=== PATIENT | female | born 1935 | race Caucasian/White ===

== ENCOUNTER → 2019-10-16 | Outpatient (CLI) | payer MEDICARE ==
[~2019-10-16] MED LIST: AMLO10TA8 PO; AMLO5TAB4 PO; ASPI-496 PO; ATOR20TA37 PO; CLON0.1T22 PO; ENAL20TA68 PO; FURO-92 PO; FURO-93 PO; HYDR-3341 PO; LOSA25TA2 PO; LOSA25TA25 PO; METO25TA35 PO; METO50TA4 PO; METO50TA82 PO; NITR2.5C8 PO; OMEP40CA3 PO; POTA25TA4 PO; SERT100T PO; SULF-169 PO; SULF1TAB24 PO
== END | disposition home or self-care (01) ==
LOC: CFH 16:15
PROVIDERS: ATTEND Surgery Vascular Surgery
DX: M79.662 Pain in left lower leg (principal)

== ENCOUNTER 2019-10-28 11:33 | Inpatient (IN) | payer MEDICARE ==
[~2019-10-28] VITALS: Ht 154.9 cm; Wt 85.5 kg
[~2019-10-28 11:33] MED LIST changes: +HYDR-3237 PO; +IBUP-1222 PO; +LIDO700A20 TD
--- NOTE | 2019-10-28 12:00 | NUR ---
THIS IS AN 83 YO FEMALE PT BIB [facility] C/O LEFT LEG PAIN X "WEEKS". PT HAS BEEN SEEN HERE FOR SAME A FEW DAYS AGO AND REPORTS SHE WENT TO "THE OTHER HOSPITAL" A COUPLE TIMES FOR SAME WELL. PT RECEIVED 100 MCG FENTANYL INTRANASALLY BY EMS [employer]. PT TEARFUL UPON ARRIVAL BUT BECAME DROWSY WHILE ANSWERING QUESTIONS STATING "THAT MEDICATION IS FINALLY KICKING IN, IT WAS A 10 AND NOW IT'S A 7". PT REST[facility] NAD NOTED. SKIN PWD, SMALL RED AREA NOTED ON LEG WITH BLACK MARKER AROUND IT. IT DOES NOT APPEAR REDNESS HAS GONE OUTSIDE MARKING. RESP EVEN AND UNLABORED. PT ON CONT BP AND O2 MONITORS. CALL LIGHT WITHIN REACH. WILL CONT TO MONITOR PT.
[2019-10-28 12:23] LABS: BASOPHILS # (AUTO) 0.05 x10^3/uL (0-0.1); BASOPHILS % (AUTO) 1 % (0-1); EOSINOPHILS # (AUTO) 0.13 x10^3/uL (0-0.4); EOSINOPHILS % (AUTO) 2 % (1-7); LYMPHOCYTES # (AUTO) 1.38 x10^3/uL (1-3.4); LYMPHOCYTES % (AUTO) 20 % (22-44); MD NO; MEAN CORPUSCULAR HEMOGLOBIN 26.5 pg (27.0-34.8); MEAN CORPUSCULAR HGB CONC 32.4 g/dL (32.4-35.8); MEAN CORPUSCULAR VOLUME 81.8 fL (80-100); MEAN PLATELET VOLUME 7.8 fL (7.4-10.4); MONOCYTES # (AUTO) 0.54 x10^3/uL (0.2-0.8); MONOCYTES % (AUTO) 8 % (2-9); NEUTROPHILS # (AUTO) 4.97 x10^3/uL (1.8-6.8); NEUTROPHILS % (AUTO) 70 % (42-75); PLATELET COUNT 437 x10^3/uL (130-400); RED BLOOD COUNT 4.85 x10^6/uL (3.82-5.3); RED CELL DISTRIBUTION WIDTH 17.8 % (9.6-15.2)
[2019-10-28 12:31] LABS: ALBUMIN 2.4 g/dL (3.4-5.0); ANION GAP 9 mmol/L (5-15); CALCIUM 9.2 mg/dL (8.5-10.1); CHLORIDE 103 mmol/L (98-107); CREATININE 1.05 mg/dL (0.55-1.02)
[2019-10-28] MEDS ORDERED: ONDANSETRON ODT 4 MG ONE (13:16)
--- NOTE | 2019-10-28 13:21 | NUR ---
PT CURRENTLY RESTING ON GURNEY. NAD NOTED. SKIN PWD. RESP EVEN AND UNLABORED. PT REPORTS PAIN IS TOLERABLE AND DECREASED AT THIS TIME. PT C/O NAUSESA. DISCUSSED WITH WADE MANCERA AND PT MEDICATED ORDERED. PT AO X 4. SKIN WARM AND DRY. RESP EVEN AND UNLABORED. PT ON CONT BP AND O2 MONITORS. CALL LIGHT WITHIN REACH. WILL CONT TO MONITOR PT.
[2019-10-28] MEDS ORDERED: ONDANSETRON ODT 4 MG PO ONE (13:30)
[2019-10-28] MEDS ORDERED: ENOXAPARIN 80 MG/0.8 ML SQ SCH (13:30)
[2019-10-28] MEDS ORDERED: ENOXAPARIN 80 MG/0.8 ML ONE (14:19)
--- NOTE | 2019-10-28 15:30 | NUR ---
PT CURRENTLY RESTING ON GURNEY. NAD NOTED. PT AWARE THAT WE ARE WAITING FOR ADMISSION. PT DENIES ANY NEEDS AT THIS TIME. CALL LIGHT WITHIN REACH. WILL CONT TO MONITOR PT.
--- NOTE | 2019-10-28 16:11 | NUR ---
lunch rn:PT CURRENTLY RESTING ON [employer]. NAD NOTED. SKIN PWD. RESP EVEN AND UNLABORED. PT REPORTS PAIN IS TOLERABLE AND DECREASED AT THIS TIME
[2019-10-28] MEDS ORDERED: hydrALAzine 20 MG/ML, 1ML IVPush PRN (16:30)
[2019-10-28] MEDS: LACTATED RINGERS 1,000 ML IV SCH (16:30)
[2019-10-28] MEDS ORDERED: ACETAMINOPHEN 325 MG TABLET PO PRN (16:30)
[2019-10-28] MEDS ORDERED: DOCUSATE 100 MG CAPSULE PO PRN (16:30)
[2019-10-28] MEDS ORDERED: LIDODERM 5% PATCH TD PRN (16:30)
--- NOTE | 2019-10-28 16:44 | NUR ---
Lunch RN: Pt in CT unable to start LR, Will begin when pt returns.
[2019-10-28] MEDS ORDERED: OMNIPAQUE 350 MG/ML, 100ML BOTTLE ONE (16:55)
--- NOTE | 2019-10-28 17:30 | NUR ---
REPORT TO YARELI WIGGINS ON MED/SURG.
--- NOTE | 2019-10-28 17:59 | NUR ---
PT PROVIDED WITH WARM BLANKET. PT AO X 4. SKIN PWD. RESP EVEN AND UNLABORED. NO ACUTE DISTRESS NOTED AT THIS TIME. PT CURRENTLY DENIES PAIN. PT AWARE SHE IS WAITING FOR ADMISSION. CALL LIGHT WITHIN REACH.
[2019-10-28 19:29] VITALS: BP 156/98
[2019-10-28] MEDS: LIDODERM 5% PATCH TD SCH (21:24)
[2019-10-28] MEDS: SERTRALINE 100MG TABLET PO SCH (21:24)
[2019-10-28] MEDS: ATORVASTATIN 20 MG TABLET PO SCH (21:24)
[2019-10-28] MEDS: HYDROcodone/APAP 5/325 TABLET PO PRN (21:43)
[2019-10-29 01:25] VITALS: BP 177/68
[2019-10-29] MEDS: ENOXAPARIN 80 MG/0.8 ML SQ SCH ×2 (02:25→14:42)
[2019-10-29] MEDS: HYDROcodone/APAP 5/325 TABLET PO PRN ×4 (03:52→20:33)
[2019-10-29 03:54] VITALS: BP 106/65
[2019-10-29] MEDS: MORPHINE SULFATE 4 MG/ML, 1ML IVPush PRN ×2 (04:56→09:41)
[2019-10-29] MEDS: LACTATED RINGERS 1,000 ML IV SCH ×2 (04:56→17:43)
[2019-10-29] MEDS: OMEPRAZOLE 20 MG CAPSULE.DR PO SCH (05:33)
[2019-10-29] MEDS ORDERED: ONDANSETRON ODT 4 MG PO ONE (06:00)
[2019-10-29 07:36] VITALS: BP 196/103
[2019-10-29] MEDS: LIDODERM REMOVE PATCH NOTE XX SCH (08:00)
[2019-10-29] MEDS: AMLODIPINE 10 MG TAB PO SCH (08:34)
[2019-10-29] MEDS: ASPIRIN 81 MG TABLET EC PO SCH (08:34)
[2019-10-29 08:35] VITALS: BP 194/72
[2019-10-29] MEDS: METOPROLOL TARTRATE 25 MG TAB PO SCH (08:35)
[2019-10-29] MEDS: LABETALOL 5MG/ML, 20ML IVPush PRN (08:40)
[2019-10-29 08:52] LABS: BASOPHILS # (AUTO) 0.03 x10^3/uL (0-0.1); BASOPHILS % (AUTO) 0 % (0-1); EOSINOPHILS # (AUTO) 0.08 x10^3/uL (0-0.4); EOSINOPHILS % (AUTO) 1 % (1-7); LYMPHOCYTES # (AUTO) 1.63 x10^3/uL (1-3.4); LYMPHOCYTES % (AUTO) 18 % (22-44); MD NO; MEAN CORPUSCULAR HEMOGLOBIN 26.4 pg (27.0-34.8); MEAN CORPUSCULAR HGB CONC 31.9 g/dL (32.4-35.8); MEAN CORPUSCULAR VOLUME 82.7 fL (80-100); MEAN PLATELET VOLUME 7.6 fL (7.4-10.4); MONOCYTES % (AUTO) 7 % (2-9); NEUTROPHILS # (AUTO) 6.92 x10^3/uL (1.8-6.8); NEUTROPHILS % (AUTO) 75 % (42-75); PLATELET COUNT 446 x10^3/uL (130-400); RED CELL DISTRIBUTION WIDTH 17.7 % (9.6-15.2)
[2019-10-29 08:57] LABS: HCT (SEDRATE) 40.5 % (34.6-47.8)
[2019-10-29 08:59] LABS: ANION GAP 11 mmol/L (5-15); CALCIUM 8.8 mg/dL (8.5-10.1); CHLORIDE 103 mmol/L (98-107); CREATININE 0.77 mg/dL (0.55-1.02)
[2019-10-29] MEDS ORDERED: MAGNESIUM SULFATE PMX 4GM/100M 100 ML IV ONE (10:00)
[2019-10-29] MEDS: POTASSIUM CHLORIDE 20 MEQ TAB.ER.PRT PO SCH ×2 (13:14→17:42)
[2019-10-29 13:31] VITALS: BP 151/59
[2019-10-29 18:42] VITALS: BP 117/66
[2019-10-29] MEDS: SERTRALINE 100MG TABLET PO SCH (20:33)
[2019-10-29] MEDS: LIDODERM 5% PATCH TD SCH (20:33)
[2019-10-29] MEDS: ATORVASTATIN 20 MG TABLET PO SCH (20:33)
[2019-10-30] MEDS: HYDROcodone/APAP 5/325 TABLET PO PRN (00:30)
[2019-10-30 01:13] VITALS: BP 148/56
[2019-10-30] MEDS: ENOXAPARIN 80 MG/0.8 ML SQ SCH ×2 (02:30→14:03)
[2019-10-30] MEDS: OMEPRAZOLE 20 MG CAPSULE.DR PO SCH (05:31)
[2019-10-30 07:58] LABS: ANION GAP 10 mmol/L (5-15); CALCIUM 8.7 mg/dL (8.5-10.1); CHLORIDE 104 mmol/L (98-107); CREATININE 0.83 mg/dL (0.55-1.02)
[2019-10-30] MEDS: LIDODERM REMOVE PATCH NOTE XX SCH (08:00)
[2019-10-30] MEDS: METOPROLOL TARTRATE 25 MG TAB PO SCH (08:22)
[2019-10-30] MEDS: ASPIRIN 81 MG TABLET EC PO SCH (08:22)
[2019-10-30] MEDS: AMLODIPINE 10 MG TAB PO SCH (08:23)
[2019-10-30] MEDS: GABAPENTIN 100 MG CAPSULE PO PRN ×3 (08:23→23:23)
[2019-10-30] MEDS: POTASSIUM CHLORIDE 20 MEQ TAB.ER.PRT PO SCH ×2 (08:23→16:56)
[2019-10-30] MEDS: LACTATED RINGERS 1,000 ML IV SCH ×2 (08:24→23:24)
[2019-10-30 08:41] VITALS: BP 138/101
[2019-10-30 15:59] VITALS: BP 122/74
[2019-10-30] MEDS: INSULIN LISPRO 100 UNITS/ML, PEN SQ-INSULIN SCH ×2 (16:00→21:38)
[2019-10-30 18:51] LABS: MICROSCOPIC AUTO
[2019-10-30 19:58] VITALS: BP 186/91
[2019-10-30] MEDS: LIDODERM 5% PATCH TD SCH (20:00)
[2019-10-30 21:26] LABS: OCCULT BLOOD NEGATIVE (NEGATIVE)
[2019-10-30] MEDS: LABETALOL 5MG/ML, 20ML IVPush PRN (21:26)
[2019-10-30] MEDS: SERTRALINE 100MG TABLET PO SCH (21:26)
[2019-10-30] MEDS: ATORVASTATIN 20 MG TABLET PO SCH (21:26)
[2019-10-31] MEDS: HYDROcodone/APAP 5/325 TABLET PO PRN (00:30)
[2019-10-31 01:59] VITALS: BP 174/72
[2019-10-31] MEDS: ENOXAPARIN 80 MG/0.8 ML SQ SCH (02:51)
[2019-10-31 05:56] LABS: ALBUMIN 2.2 g/dL (3.4-5.0); ANION GAP 8 mmol/L (5-15); CALCIUM 9.2 mg/dL (8.5-10.1); CHLORIDE 105 mmol/L (98-107)
[2019-10-31 06:12] LABS: ALANINE AMINOTRANSFERASE 26 U/L (12-78); ALKALINE PHOSPHATASE 132 U/L (45-117); BILIRUBIN,TOTAL 0.3 mg/dL (0.2-1.0); CREATININE 0.76 mg/dL (0.55-1.02); TOTAL PROTEIN 6.9 g/dL (6.4-8.2)
[2019-10-31 06:18] LABS: BASOPHILS # (AUTO) 0.03 x10^3/uL (0-0.1); BASOPHILS % (AUTO) 0 % (0-1); EOSINOPHILS # (AUTO) 0.09 x10^3/uL (0-0.4); EOSINOPHILS % (AUTO) 1 % (1-7); LYMPHOCYTES # (AUTO) 1.22 x10^3/uL (1-3.4); LYMPHOCYTES % (AUTO) 16 % (22-44); MD NO; MEAN CORPUSCULAR HEMOGLOBIN 26.4 pg (27.0-34.8); MEAN CORPUSCULAR HGB CONC 31.6 g/dL (32.4-35.8); MEAN CORPUSCULAR VOLUME 83.3 fL (80-100); MEAN PLATELET VOLUME 7.8 fL (7.4-10.4); MONOCYTES # (AUTO) 0.48 x10^3/uL (0.2-0.8); MONOCYTES % (AUTO) 6 % (2-9); NEUTROPHILS # (AUTO) 5.79 x10^3/uL (1.8-6.8); NEUTROPHILS % (AUTO) 76 % (42-75); PLATELET COUNT 474 x10^3/uL (130-400); RED BLOOD COUNT 4.57 x10^6/uL (3.82-5.3); RED CELL DISTRIBUTION WIDTH 18.3 % (9.6-15.2)
[2019-10-31] MEDS: OMEPRAZOLE 20 MG CAPSULE.DR PO SCH (06:41)
[2019-10-31] MEDS: INSULIN LISPRO 100 UNITS/ML, PEN SQ-INSULIN SCH ×3 (07:00→16:00)
[2019-10-31] MEDS: LIDODERM REMOVE PATCH NOTE XX SCH (07:08)
[2019-10-31] MEDS: GABAPENTIN 100 MG CAPSULE PO PRN (07:13)
[2019-10-31 07:25] VITALS: BP 126/71
[2019-10-31] MEDS: ASPIRIN 81 MG TABLET EC PO SCH (08:40)
[2019-10-31] MEDS: POTASSIUM CHLORIDE 20 MEQ TAB.ER.PRT PO SCH ×2 (08:40→16:56)
[2019-10-31] MEDS: AMLODIPINE 10 MG TAB PO SCH (08:40)
[2019-10-31] MEDS: METOPROLOL TARTRATE 25 MG TAB PO SCH (08:41)
[2019-10-31] MEDS: LIDODERM 5% PATCH TD SCH (10:37)
[2019-10-31] MEDS ORDERED: APIXABAN 5 MG TABLET PO SCH (12:30)
[2019-10-31] MEDS ORDERED: PRED20TA PO (13:24)
[2019-10-31 14:27] VITALS: BP 139/58
[2019-10-31] MEDS ORDERED: APIX5TAB PO ×3 (15:40→15:41)
[2019-11-07] MEDS ORDERED: APIXABAN 5 MG TABLET PO SCH (09:00)
== END 2019-10-31 18:25 | disposition home or self-care (01) | DRG 299 ==
LOC: ED 13:09 → EDIP 14:42 → 3N 18:44
PROVIDERS: ADMIT Internal Medicine; ATTEND Internal Medicine
DX: I82.442 Acute embolism and thrombosis of left tibial vein (principal); N17.0 Acute kidney failure with tubular necrosis; J96.01 Acute respiratory failure with hypoxia; I82.432 Acute embolism and thrombosis of left popliteal vein; E87.6 Hypokalemia; E83.42 Hypomagnesemia; F32.9 Major depressive disorder, single episode, unspecified; G62.9 Polyneuropathy, unspecified; M79.3 Panniculitis, unspecified; I11.0 Hypertensive heart disease with heart failure; I25.10 Atherosclerotic heart disease of native coronary artery without angina pectoris; I50.9 Heart failure, unspecified; E86.0 Dehydration; Z95.1 Presence of aortocoronary bypass graft; Z86.73 Personal history of transient ischemic attack (TIA), and cerebral infarction without residual deficits; Z86.718 Personal history of other venous thrombosis and embolism; Z79.899 Other long term (current) drug therapy; Z79.01 Long term (current) use of anticoagulants; Z88.8 Allergy status to other drugs, medicaments and biological substances; Z88.0 Allergy status to penicillin
CPT/HCPCS: 36415; 71275; 80048; 80053; 81001; 82040; 82272; 82595; 82962; 83516; 83735; 85025; 85651; 86038; 86140; 86147; 86160; 86162; 86256; 86430; 86704; 86705; 86706; 86707; 86803; 87077; 87086; 87186; 87340; 87350; 87806; 93005; 93308; 93321; 93325; 96372; 99285; G0378; J1650; Q0162; Q9967; G0475; J1815; J2270; J3475; J7120; J7512

== ENCOUNTER 2019-12-14 07:33 | Inpatient (IN) | payer MEDICARE ==
[~2019-12-14] VITALS: Ht 154.9 cm; Wt 75.4 kg
[~2019-12-14 07:33] MED LIST changes: +ACET-2065 PO; +APIX5TAB PO; +BACITRACIN 50,000 UNIT ONE; +CLIN150C14 PO; +DEXAMETHASONE 4 MG/ML, 1ML ONE; +FENTANYL PF 100 MCG/2ML ONE; +GABA600T7 PO; +HEPARIN 1,000 UNITS/ML, 30ML ONE; +LIDO5CRE26 TL; +MIDAZOLAM 1 MG/ML, 2ML ONE; +ONDANSETRON 2MG/ML, 2ML ONE; +POTA20TA89 PO; +PRED20TA PO; +PROPOFOL 10 MG/ML, 20ML ONE; +PROTAMINE SULFATE 10 MG/ML, 5ML ONE; +ROCURONIUM 10MG/ML,5ML ONE
[2019-12-14] MEDS ORDERED: CHLORHEXIDINE 15 ML UDC MM STA (08:02)
[2019-12-14] MEDS ORDERED: LACTATED RINGERS 1,000 ML IV ONE (08:05)
[2019-12-14] MEDS ORDERED: LIDOCAINE-MPF 1%, 2ML INFIL ONE (08:05)
[2019-12-14] MEDS ORDERED: ACETAMINOPHEN 500 MG TABLET PO ONE (10:03)
[2019-12-14] MEDS ORDERED: OXYcodone IR 5MG TABLET PO ONE (10:03)
[2019-12-14] MEDS ORDERED: CEFAZOLIN 1,000 MG ONE (12:06)
[2019-12-14] MEDS ORDERED: GLYCOPYRROLATE 0.2MG/1ML, 5ML ONE (12:06)
[2019-12-14] MEDS ORDERED: PHENYLEPHRINE 10 MG/ML ONE (12:06)
[2019-12-14] MEDS ORDERED: NEOSTIGMINE 1 MG/ML, 10ML ONE (12:06)
[2019-12-14] MEDS ORDERED: EPHEDRINE 50 MG/ML, 1ML ONE (12:19)
[2019-12-14] MEDS ORDERED: FENTANYL PF 100 MCG/2ML ONE ×2 (14:31→14:51)
[2019-12-14] MEDS: FENTANYL PF 100 MCG/2ML IV PRN ×5 (14:32→15:10)
[2019-12-14] MEDS ORDERED: OXYcodone 5 MG/5 ML ORAL.SOL UDC ONE (14:59)
[2019-12-14] MEDS ORDERED: OXYcodone 5 MG/5 ML ORAL.SOL UDC PO PRN (15:00)
[2019-12-14] MEDS ORDERED: hydrALAzine 20 MG/ML, 1ML IV PRN (15:00)
[2019-12-14] MEDS ORDERED: ACETAMINOPHEN 325 MG TABLET PO PRN ×3 (15:00→17:30)
[2019-12-14] MEDS ORDERED: LABETALOL 5MG/ML, 20ML IV PRN (15:00)
[2019-12-14] MEDS ORDERED: ONDANSETRON 2MG/ML, 2ML IVPush PRN ×2 (15:00→17:30)
[2019-12-14] MEDS ORDERED: HYDROmorphone 1 MG/ML, 1ML INJ ONE (15:24)
[2019-12-14] MEDS: HYDROmorphone 1 MG/ML, 1ML INJ IVPush PRN ×2 (15:25→15:36)
[2019-12-14 16:45] VITALS: BP 102/62
[2019-12-14] MEDS ORDERED: ONDANSETRON 2MG/ML, 2ML IV PRN (17:30)
[2019-12-14] MEDS ORDERED: MEPERIDINE/PF 50 MG/ML IV PRN (17:30)
[2019-12-14] MEDS ORDERED: hydrALAzine 20 MG/ML, 1ML IVPush PRN (17:30)
[2019-12-14] MEDS ORDERED: HEPARIN 5,000 UNITS/ML, 1ML SQ SCH (17:30)
[2019-12-14] MEDS ORDERED: BISACODYL 10 MG SUPP PR PRN (17:30)
[2019-12-14] MEDS ORDERED: ZOLPIDEM 5MG TABLET PO PRN (17:30)
[2019-12-14] MEDS ORDERED: HYDROcodone/APAP 5/325 TABLET PO PRN (17:30)
[2019-12-14] MEDS ORDERED: LIDODERM 5% PATCH TD PRN (17:30)
[2019-12-14 18:12] LABS: BASOPHILS # (AUTO) 0.04 x10^3/uL (0-0.1); BASOPHILS % (AUTO) 0 % (0-1); EOSINOPHILS # (AUTO) 0.11 x10^3/uL (0-0.4); EOSINOPHILS % (AUTO) 1 % (1-7); LYMPHOCYTES # (AUTO) 0.75 x10^3/uL (1-3.4); LYMPHOCYTES % (AUTO) 5 % (22-44); MD NO; MEAN CORPUSCULAR HEMOGLOBIN 27.1 pg (27.0-34.8); MEAN CORPUSCULAR HGB CONC 32.3 g/dL (32.4-35.8); MEAN PLATELET VOLUME 7.3 fL (7.4-10.4); MONOCYTES # (AUTO) 0.13 x10^3/uL (0.2-0.8); MONOCYTES % (AUTO) 1 % (2-9); NEUTROPHILS # (AUTO) 13.43 x10^3/uL (1.8-6.8); NEUTROPHILS % (AUTO) 93 % (42-75); PLATELET COUNT 515 x10^3/uL (130-400); RED BLOOD COUNT 4.16 x10^6/uL (3.82-5.3); RED CELL DISTRIBUTION WIDTH 20.8 % (9.6-15.2)
[2019-12-14 18:13] LABS: HCT (SEDRATE) 35.2 % (34.6-47.8)
[2019-12-14] MEDS: METRONIDAZOLE PMX 500MG/100ML 100 ML IVPB SCH (18:25)
[2019-12-14 18:32] LABS: FREE T4 (FREE THYROXINE) 1.44 ng/dL (0.76-1.46)
[2019-12-14] MEDS: HYDROcodone/APAP 5/325 TABLET PO PRN ×2 (19:31→19:59)
[2019-12-14] MEDS: POTASSIUM CHLORIDE 20 MEQ in D5%-0.45% NACL 1,000 ML IV SCH (19:32)
[2019-12-14] MEDS: CEFTRIAXONE PMX 1GM/50ML 50 ML IV SCH (19:59)
[2019-12-14] MEDS: METOPROLOL TARTRATE 25 MG TAB PO SCH (19:59)
[2019-12-14] MEDS: SODIUM CHLORIDE FLUSH 10ML SYR IVF SCH (20:00)
[2019-12-14] MEDS: POTASSIUM CHLORIDE 20 MEQ TAB.ER.PRT PO SCH (20:00)
[2019-12-14] MEDS: GABAPENTIN 300 MG CAPSULE PO SCH (20:00)
[2019-12-14] MEDS: SERTRALINE 100MG TABLET PO SCH (20:00)
[2019-12-14 20:17] VITALS: BP 134/70
[2019-12-14] MEDS ORDERED: METOPROLOL TARTRATE 25 MG TAB PO SCH (21:00)
[2019-12-14] MEDS ORDERED: TEMPLATE NON-FORMULARY MED. (Gabapentin** 300 MG) PO SCH (21:00)
[2019-12-14] MEDS ORDERED: OMEPRAZOLE 20 MG PO SCH (21:00)
[2019-12-14] MEDS ORDERED: SERTRALINE 100MG TABLET PO SCH (21:00)
[2019-12-14] MEDS ORDERED: TEMPLATE NON-FORMULARY MED. (Potassium Chloride** 20 MEQ) PO SCH (21:00)
[2019-12-15] VITALS (8 sets, daily range): BP systolic 92–114; BP diastolic 41–66
[2019-12-15] MEDS: HYDROcodone/APAP 5/325 TABLET PO PRN ×5 (00:23→19:10)
[2019-12-15] MEDS: METRONIDAZOLE PMX 500MG/100ML 100 ML IVPB SCH ×3 (01:58→17:56)
[2019-12-15] MEDS: ASPIRIN 81 MG TABLET EC PO SCH (05:03)
[2019-12-15] MEDS: DOCUSATE 100 MG CAPSULE PO PRN (05:03)
[2019-12-15 05:49] LABS: BASOPHILS # (AUTO) 0.01 x10^3/uL (0-0.1); BASOPHILS % (AUTO) 0 % (0-1); EOSINOPHILS % (AUTO) 0 % (1-7); LYMPHOCYTES # (AUTO) 1.17 x10^3/uL (1-3.4); LYMPHOCYTES % (AUTO) 8 % (22-44); MD NO; MEAN CORPUSCULAR HEMOGLOBIN 26.4 pg (27.0-34.8); MEAN CORPUSCULAR HGB CONC 31.2 g/dL (32.4-35.8); MEAN PLATELET VOLUME 6.9 fL (7.4-10.4); MONOCYTES # (AUTO) 0.96 x10^3/uL (0.2-0.8); MONOCYTES % (AUTO) 7 % (2-9); NEUTROPHILS # (AUTO) 12.49 x10^3/uL (1.8-6.8); NEUTROPHILS % (AUTO) 85 % (42-75); PLATELET COUNT 436 x10^3/uL (130-400); RED CELL DISTRIBUTION WIDTH 20.9 % (9.6-15.2)
[2019-12-15 05:50] LABS: HCT (SEDRATE) 29.6 % (34.6-47.8)
[2019-12-15 06:02] LABS: ALANINE AMINOTRANSFERASE 10 U/L (12-78); ALBUMIN 2.1 g/dL (3.4-5.0); ANION GAP 4 mmol/L (5-15); CHLORIDE 106 mmol/L (98-107); CHOLESTEROL, TOTAL 100 mg/dL (140-239); CREATININE 0.89 mg/dL (0.55-1.02)
[2019-12-15 06:10] LABS: ALKALINE PHOSPHATASE 58 U/L (45-117); BILIRUBIN,TOTAL 0.2 mg/dL (0.2-1.0); CHOL/HDL RATIO 2.7; HDL CHOL % 37 % (28-40); HDL CHOLESTEROL (DIRECT) 37 mg/dL (40-60); LDL CHOLESTEROL,CALCULATED 45 mg/dL (54-169); LDL/HDL RATIO 1.2 (0.5-3.0); TOTAL PROTEIN 6.2 g/dL (6.4-8.2); TRIGLYCERIDES 88 mg/dL (50-200); VLDL CHOLESTEROL 18 mg/dL (0-25)
[2019-12-15] MEDS ORDERED: KETOROLAC 30 MG/1 ML ONE (06:32)
[2019-12-15] MEDS: KETOROLAC 30 MG/1 ML IVPush PRN (06:36)
[2019-12-15] MEDS ORDERED: PANTOPRAZOLE 40MG TABLET PO SCH (07:30)
[2019-12-15] MEDS: OMEPRAZOLE 20 MG CAPSULE.DR PO SCH ×2 (08:18→15:50)
[2019-12-15] MEDS: ENOXAPARIN 30 MG/0.3 ML SQ SCH ×2 (08:18→20:04)
[2019-12-15] MEDS: GABAPENTIN 300 MG CAPSULE PO SCH ×3 (08:18→20:04)
[2019-12-15] MEDS: POTASSIUM CHLORIDE 20 MEQ in D5%-0.45% NACL 1,000 ML IV SCH (08:59)
[2019-12-15] MEDS ORDERED: AMLODIPINE 10 MG TAB PO SCH (09:00)
[2019-12-15] MEDS ORDERED: FUROSEMIDE 40 MG TABLET PO SCH (09:00)
[2019-12-15] MEDS: SODIUM CHLORIDE FLUSH 10ML SYR IVF SCH ×2 (09:01→20:06)
[2019-12-15] MEDS: AMLODIPINE 10 MG TAB PO SCH (09:34)
[2019-12-15] MEDS: FUROSEMIDE 40 MG TABLET PO SCH (09:34)
[2019-12-15] MEDS: CEFTRIAXONE PMX 1GM/50ML 50 ML IV SCH (20:04)
[2019-12-15] MEDS: SERTRALINE 100MG TABLET PO SCH (20:05)
[2019-12-15] MEDS: METOPROLOL TARTRATE 25 MG TAB PO SCH (20:05)
[2019-12-15] MEDS: POTASSIUM CHLORIDE 20 MEQ TAB.ER.PRT PO SCH (20:05)
[2019-12-15] MEDS: POLYETHYLENE GLYCOL 17 GM PACKET PO PRN (20:05)
[2019-12-16 01:29] VITALS: BP 114/76
[2019-12-16] MEDS: POTASSIUM CHLORIDE 20 MEQ in D5%-0.45% NACL 1,000 ML IV SCH (01:29)
[2019-12-16] MEDS: METRONIDAZOLE PMX 500MG/100ML 100 ML IVPB SCH ×3 (01:29→17:54)
[2019-12-16] MEDS: HYDROcodone/APAP 5/325 TABLET PO PRN ×4 (01:29→18:03)
[2019-12-16] MEDS: KETOROLAC 30 MG/1 ML IVPush PRN ×3 (03:08→20:08)
[2019-12-16 04:37] LABS: BASOPHILS # (AUTO) 0.07 x10^3/uL (0-0.1); BASOPHILS % (AUTO) 1 % (0-1); EOSINOPHILS # (AUTO) 0.41 x10^3/uL (0-0.4); EOSINOPHILS % (AUTO) 4 % (1-7); LYMPHOCYTES # (AUTO) 2.18 x10^3/uL (1-3.4); LYMPHOCYTES % (AUTO) 19 % (22-44); MD NO; MEAN CORPUSCULAR HEMOGLOBIN 26.8 pg (27.0-34.8); MEAN CORPUSCULAR HGB CONC 31.3 g/dL (32.4-35.8); MEAN PLATELET VOLUME 6.7 fL (7.4-10.4); MONOCYTES # (AUTO) 0.93 x10^3/uL (0.2-0.8); MONOCYTES % (AUTO) 8 % (2-9); NEUTROPHILS # (AUTO) 7.85 x10^3/uL (1.8-6.8); NEUTROPHILS % (AUTO) 69 % (42-75); PLATELET COUNT 436 x10^3/uL (130-400); RED BLOOD COUNT 3.29 x10^6/uL (3.82-5.3); RED CELL DISTRIBUTION WIDTH 20.8 % (9.6-15.2)
[2019-12-16 04:47] LABS: ANION GAP 5 mmol/L (5-15); CALCIUM 8.5 mg/dL (8.5-10.1); CHLORIDE 102 mmol/L (98-107)
[2019-12-16 04:48] LABS: CREATININE 0.97 mg/dL (0.55-1.02)
[2019-12-16] MEDS: ASPIRIN 81 MG TABLET EC PO SCH (05:34)
[2019-12-16 08:02] VITALS: BP 108/58
[2019-12-16] MEDS: SODIUM CHLORIDE FLUSH 10ML SYR IVF SCH ×2 (09:00→20:09)
[2019-12-16] MEDS: FUROSEMIDE 40 MG TABLET PO SCH (09:17)
[2019-12-16] MEDS: OMEPRAZOLE 20 MG CAPSULE.DR PO SCH ×2 (09:17→16:42)
[2019-12-16] MEDS: GABAPENTIN 300 MG CAPSULE PO SCH ×3 (09:17→20:08)
[2019-12-16] MEDS: ACETAMINOPHEN 325 MG TABLET PO PRN (09:17)
[2019-12-16] MEDS: AMLODIPINE 10 MG TAB PO SCH (09:17)
[2019-12-16] MEDS: ENOXAPARIN 30 MG/0.3 ML SQ SCH ×2 (09:18→20:08)
[2019-12-16] MEDS: DOCUSATE 100 MG CAPSULE PO PRN (12:22)
[2019-12-16] MEDS: POLYETHYLENE GLYCOL 17 GM PACKET PO PRN (12:22)
[2019-12-16 13:32] VITALS: BP 100/67
[2019-12-16 19:16] VITALS: BP 115/65
[2019-12-16] MEDS: CEFTRIAXONE PMX 1GM/50ML 50 ML IV SCH (20:08)
[2019-12-16] MEDS: SERTRALINE 100MG TABLET PO SCH (20:08)
[2019-12-16] MEDS: POTASSIUM CHLORIDE 20 MEQ TAB.ER.PRT PO SCH (20:09)
[2019-12-16] MEDS: METOPROLOL TARTRATE 25 MG TAB PO SCH (20:09)
[2019-12-17 00:54] VITALS: BP 100/55
[2019-12-17] MEDS: METRONIDAZOLE PMX 500MG/100ML 100 ML IVPB SCH ×3 (01:40→18:07)
[2019-12-17] MEDS: ASPIRIN 81 MG TABLET EC PO SCH (05:33)
[2019-12-17] MEDS: HYDROcodone/APAP 5/325 TABLET PO PRN ×4 (05:33→23:10)
[2019-12-17] MEDS: KETOROLAC 30 MG/1 ML IVPush PRN ×3 (05:58→20:47)
[2019-12-17 06:35] LABS: BASOPHILS # (AUTO) 0.07 x10^3/uL (0-0.1); BASOPHILS % (AUTO) 1 % (0-1); EOSINOPHILS # (AUTO) 0.51 x10^3/uL (0-0.4); EOSINOPHILS % (AUTO) 4 % (1-7); LYMPHOCYTES # (AUTO) 1.31 x10^3/uL (1-3.4); LYMPHOCYTES % (AUTO) 10 % (22-44); MD NO; MEAN CORPUSCULAR HEMOGLOBIN 27.2 pg (27.0-34.8); MEAN PLATELET VOLUME 7.2 fL (7.4-10.4); MONOCYTES # (AUTO) 0.67 x10^3/uL (0.2-0.8); MONOCYTES % (AUTO) 5 % (2-9); NEUTROPHILS # (AUTO) 10.67 x10^3/uL (1.8-6.8); NEUTROPHILS % (AUTO) 81 % (42-75); PLATELET COUNT 466 x10^3/uL (130-400); RED BLOOD COUNT 3.94 x10^6/uL (3.82-5.3); RED CELL DISTRIBUTION WIDTH 20.5 % (9.6-15.2)
[2019-12-17 06:38] LABS: ANION GAP 6 mmol/L (5-15); CALCIUM 9.3 mg/dL (8.5-10.1); CHLORIDE 103 mmol/L (98-107)
[2019-12-17 06:55] VITALS: BP 121/62
[2019-12-17] MEDS: ENOXAPARIN 30 MG/0.3 ML SQ SCH (08:46)
[2019-12-17] MEDS: SODIUM CHLORIDE FLUSH 10ML SYR IVF SCH ×2 (08:47→21:03)
[2019-12-17] MEDS: FUROSEMIDE 40 MG TABLET PO SCH (09:48)
[2019-12-17] MEDS: OMEPRAZOLE 20 MG CAPSULE.DR PO SCH ×2 (09:51→17:47)
[2019-12-17] MEDS: AMLODIPINE 10 MG TAB PO SCH (09:51)
[2019-12-17] MEDS: GABAPENTIN 300 MG CAPSULE PO SCH ×3 (09:52→23:00)
[2019-12-17 14:15] VITALS: BP 119/67
[2019-12-17 18:54] VITALS: BP 131/75
[2019-12-17] MEDS: CEFTRIAXONE PMX 1GM/50ML 50 ML IV SCH ×2 (20:46→23:02)
[2019-12-17 21:05] VITALS: BP 129/72
[2019-12-17] MEDS: SERTRALINE 100MG TABLET PO SCH (23:00)
[2019-12-17] MEDS: APIXABAN 5 MG TABLET PO SCH (23:01)
[2019-12-17] MEDS: METOPROLOL TARTRATE 25 MG TAB PO SCH (23:01)
[2019-12-18 00:55] VITALS: BP 125/65
[2019-12-18] MEDS: METRONIDAZOLE PMX 500MG/100ML 100 ML IVPB SCH ×2 (03:07→11:59)
[2019-12-18] MEDS: ASPIRIN 81 MG TABLET EC PO SCH (05:39)
[2019-12-18] MEDS: HYDROcodone/APAP 5/325 TABLET PO PRN ×4 (05:39→22:59)
[2019-12-18 06:28] LABS: BASOPHILS # (AUTO) 0.06 x10^3/uL (0-0.1); BASOPHILS % (AUTO) 1 % (0-1); EOSINOPHILS # (AUTO) 0.61 x10^3/uL (0-0.4); EOSINOPHILS % (AUTO) 7 % (1-7); LYMPHOCYTES # (AUTO) 1.79 x10^3/uL (1-3.4); LYMPHOCYTES % (AUTO) 20 % (22-44); MD NO; MEAN CORPUSCULAR HEMOGLOBIN 26.8 pg (27.0-34.8); MEAN CORPUSCULAR HGB CONC 31.3 g/dL (32.4-35.8); MEAN PLATELET VOLUME 6.9 fL (7.4-10.4); MONOCYTES # (AUTO) 0.69 x10^3/uL (0.2-0.8); MONOCYTES % (AUTO) 8 % (2-9); NEUTROPHILS # (AUTO) 5.65 x10^3/uL (1.8-6.8); NEUTROPHILS % (AUTO) 64 % (42-75); PLATELET COUNT 468 x10^3/uL (130-400); RED BLOOD COUNT 3.52 x10^6/uL (3.82-5.3); RED CELL DISTRIBUTION WIDTH 20.8 % (9.6-15.2)
[2019-12-18 06:34] LABS: CHLORIDE 105 mmol/L (98-107)
[2019-12-18 06:47] LABS: ANION GAP 7 mmol/L (5-15); CALCIUM 8.5 mg/dL (8.5-10.1); CREATININE 0.81 mg/dL (0.55-1.02)
[2019-12-18] MEDS: FUROSEMIDE 40 MG TABLET PO SCH (10:16)
[2019-12-18] MEDS: AMLODIPINE 10 MG TAB PO SCH (10:17)
[2019-12-18] MEDS: APIXABAN 5 MG TABLET PO SCH ×2 (10:18→20:56)
[2019-12-18] MEDS: OMEPRAZOLE 20 MG CAPSULE.DR PO SCH ×2 (10:19→16:51)
[2019-12-18] MEDS: GABAPENTIN 300 MG CAPSULE PO SCH ×3 (10:22→20:56)
[2019-12-18] MEDS: DOCUSATE 100 MG CAPSULE PO PRN (10:22)
[2019-12-18 10:34] VITALS: BP 120/68
[2019-12-18 11:32] VITALS: BP 129/65
[2019-12-18] MEDS: KETOROLAC 30 MG/1 ML IVPush PRN (12:00)
[2019-12-18] MEDS: SODIUM CHLORIDE FLUSH 10ML SYR IVF SCH ×2 (12:01→20:58)
[2019-12-18 14:05] VITALS: BP 112/63
[2019-12-18 19:00] VITALS: BP 120/69
[2019-12-18 20:55] VITALS: BP 111/67
[2019-12-18] MEDS: SERTRALINE 100MG TABLET PO SCH (20:56)
[2019-12-18] MEDS: DOXYCYCLINE 100MG TABLET PO SCH (20:56)
[2019-12-18] MEDS: METOPROLOL TARTRATE 25 MG TAB PO SCH (20:57)
[2019-12-18] MEDS: CEFTRIAXONE PMX 1GM/50ML 50 ML IV SCH (22:54)
[2019-12-19 00:58] VITALS: BP 123/89
[2019-12-19] MEDS: HYDROcodone/APAP 5/325 TABLET PO PRN ×3 (05:16→22:29)
[2019-12-19] MEDS: ASPIRIN 81 MG TABLET EC PO SCH (05:16)
[2019-12-19 07:07] VITALS: BP 114/69
[2019-12-19 07:17] LABS: BASOPHILS # (AUTO) 0.04 x10^3/uL (0-0.1); BASOPHILS % (AUTO) 1 % (0-1); EOSINOPHILS # (AUTO) 0.53 x10^3/uL (0-0.4); EOSINOPHILS % (AUTO) 6 % (1-7); LYMPHOCYTES # (AUTO) 1.16 x10^3/uL (1-3.4); LYMPHOCYTES % (AUTO) 12 % (22-44); MD NO; MEAN CORPUSCULAR HEMOGLOBIN 26.7 pg (27.0-34.8); MEAN CORPUSCULAR HGB CONC 31.6 g/dL (32.4-35.8); MEAN PLATELET VOLUME 6.7 fL (7.4-10.4); MONOCYTES # (AUTO) 0.58 x10^3/uL (0.2-0.8); MONOCYTES % (AUTO) 6 % (2-9); NEUTROPHILS # (AUTO) 7.19 x10^3/uL (1.8-6.8); NEUTROPHILS % (AUTO) 76 % (42-75); PLATELET COUNT 469 x10^3/uL (130-400); RED CELL DISTRIBUTION WIDTH 20.9 % (9.6-15.2)
[2019-12-19 07:27] LABS: ANION GAP 5 mmol/L (5-15); CALCIUM 8.6 mg/dL (8.5-10.1); CHLORIDE 106 mmol/L (98-107); CREATININE 0.72 mg/dL (0.55-1.02)
[2019-12-19] MEDS: OMEPRAZOLE 20 MG CAPSULE.DR PO SCH ×2 (08:00→15:55)
[2019-12-19] MEDS: GABAPENTIN 300 MG CAPSULE PO SCH ×3 (10:15→21:00)
[2019-12-19] MEDS: AMLODIPINE 10 MG TAB PO SCH (10:15)
[2019-12-19] MEDS: DOXYCYCLINE 100MG TABLET PO SCH ×2 (10:15→21:00)
[2019-12-19] MEDS: FUROSEMIDE 40 MG TABLET PO SCH (10:15)
[2019-12-19] MEDS: APIXABAN 5 MG TABLET PO SCH ×2 (10:15→21:00)
[2019-12-19] MEDS: SODIUM CHLORIDE FLUSH 10ML SYR IVF SCH ×2 (10:16→21:00)
[2019-12-19 12:27] VITALS: BP 109/61
[2019-12-19 19:33] VITALS: BP 108/50
[2019-12-19 22:25] VITALS: BP 140/56
[2019-12-19] MEDS: METOPROLOL TARTRATE 25 MG TAB PO SCH (22:29)
[2019-12-19] MEDS: SERTRALINE 100MG TABLET PO SCH (22:29)
[2019-12-19] MEDS: CEFTRIAXONE PMX 1GM/50ML 50 ML IV SCH (23:11)
[2019-12-20] MEDS ORDERED: HYDROmorphone 1 MG/ML, 1ML INJ IV ONE
[2019-12-20 00:39] VITALS: BP 95/67
[2019-12-20] MEDS: ASPIRIN 81 MG TABLET EC PO SCH (06:18)
[2019-12-20 06:20] VITALS: BP 136/78
[2019-12-20] MEDS: AMLODIPINE 10 MG TAB PO SCH (07:29)
[2019-12-20] MEDS: HYDROcodone/APAP 5/325 TABLET PO PRN ×2 (07:29→23:14)
[2019-12-20] MEDS: FUROSEMIDE 40 MG TABLET PO SCH (07:30)
[2019-12-20] MEDS: APIXABAN 5 MG TABLET PO SCH ×2 (07:30→20:29)
[2019-12-20] MEDS: SODIUM CHLORIDE FLUSH 10ML SYR IVF SCH ×2 (07:30→20:28)
[2019-12-20] MEDS: OMEPRAZOLE 20 MG CAPSULE.DR PO SCH ×2 (07:30→16:39)
[2019-12-20] MEDS: GABAPENTIN 300 MG CAPSULE PO SCH ×3 (07:30→20:28)
[2019-12-20] MEDS: DOXYCYCLINE 100MG TABLET PO SCH ×2 (07:30→20:28)
[2019-12-20 07:50] LABS: BASOPHILS # (AUTO) 0.05 x10^3/uL (0-0.1); BASOPHILS % (AUTO) 1 % (0-1); EOSINOPHILS % (AUTO) 5 % (1-7); LYMPHOCYTES # (AUTO) 1.79 x10^3/uL (1-3.4); LYMPHOCYTES % (AUTO) 20 % (22-44); MD NO; MEAN CORPUSCULAR HEMOGLOBIN 26.7 pg (27.0-34.8); MEAN CORPUSCULAR HGB CONC 31.3 g/dL (32.4-35.8); MEAN PLATELET VOLUME 6.8 fL (7.4-10.4); MONOCYTES # (AUTO) 0.75 x10^3/uL (0.2-0.8); MONOCYTES % (AUTO) 8 % (2-9); NEUTROPHILS # (AUTO) 6.04 x10^3/uL (1.8-6.8); NEUTROPHILS % (AUTO) 67 % (42-75); PLATELET COUNT 501 x10^3/uL (130-400); RED BLOOD COUNT 3.64 x10^6/uL (3.82-5.3); RED CELL DISTRIBUTION WIDTH 20.6 % (9.6-15.2)
[2019-12-20 08:01] LABS: ANION GAP 7 mmol/L (5-15); CALCIUM 9.1 mg/dL (8.5-10.1); CHLORIDE 102 mmol/L (98-107)
[2019-12-20 08:02] LABS: CREATININE 0.78 mg/dL (0.55-1.02)
[2019-12-20 13:43] VITALS: BP 139/79
[2019-12-20 19:34] VITALS: BP 143/84
[2019-12-20] MEDS: METOPROLOL TARTRATE 25 MG TAB PO SCH (20:28)
[2019-12-20] MEDS: SERTRALINE 100MG TABLET PO SCH (20:28)
[2019-12-20] MEDS: CEFTRIAXONE PMX 1GM/50ML 50 ML IV SCH (23:14)
[2019-12-21 02:00] VITALS: BP 138/82
[2019-12-21] MEDS: HYDROcodone/APAP 5/325 TABLET PO PRN ×3 (03:39→21:55)
[2019-12-21] MEDS: ASPIRIN 81 MG TABLET EC PO SCH (05:12)
[2019-12-21 07:09] VITALS: BP 117/48
[2019-12-21 07:13] VITALS: BP 121/72
[2019-12-21] MEDS: OMEPRAZOLE 20 MG CAPSULE.DR PO SCH ×2 (07:45→16:21)
[2019-12-21] MEDS: AMLODIPINE 10 MG TAB PO SCH (07:45)
[2019-12-21] MEDS: DOXYCYCLINE 100MG TABLET PO SCH ×2 (07:45→20:06)
[2019-12-21] MEDS: GABAPENTIN 300 MG CAPSULE PO SCH ×3 (07:45→20:06)
[2019-12-21] MEDS: FUROSEMIDE 40 MG TABLET PO SCH (07:45)
[2019-12-21] MEDS: APIXABAN 5 MG TABLET PO SCH ×2 (07:45→20:06)
[2019-12-21] MEDS: SODIUM CHLORIDE FLUSH 10ML SYR IVF SCH ×2 (07:46→20:07)
[2019-12-21 07:50] LABS: ANION GAP 4 mmol/L (5-15); CALCIUM 8.8 mg/dL (8.5-10.1); CHLORIDE 102 mmol/L (98-107)
[2019-12-21 07:57] LABS: CREATININE 0.66 mg/dL (0.55-1.02)
[2019-12-21 08:00] LABS: BASOPHILS # (AUTO) 0.06 x10^3/uL (0-0.1); BASOPHILS % (AUTO) 1 % (0-1); EOSINOPHILS # (AUTO) 0.27 x10^3/uL (0-0.4); EOSINOPHILS % (AUTO) 4 % (1-7); LYMPHOCYTES # (AUTO) 1.91 x10^3/uL (1-3.4); LYMPHOCYTES % (AUTO) 26 % (22-44); MD NO; MEAN CORPUSCULAR HEMOGLOBIN 26.3 pg (27.0-34.8); MEAN CORPUSCULAR HGB CONC 30.7 g/dL (32.4-35.8); MEAN PLATELET VOLUME 6.9 fL (7.4-10.4); MONOCYTES # (AUTO) 0.73 x10^3/uL (0.2-0.8); MONOCYTES % (AUTO) 10 % (2-9); NEUTROPHILS # (AUTO) 4.45 x10^3/uL (1.8-6.8); NEUTROPHILS % (AUTO) 60 % (42-75); PLATELET COUNT 455 x10^3/uL (130-400); RED BLOOD COUNT 3.41 x10^6/uL (3.82-5.3)
[2019-12-21 08:35] LABS: TROPONIN I < 0.015 ng/mL (0.000-0.045)
[2019-12-21 09:08] LABS: HCT (SEDRATE) 29.2 % (34.6-47.8)
[2019-12-21 13:37] VITALS: BP 135/76
[2019-12-21] MEDS ORDERED: LORazepam 2 MG/ML, 1ML IVPush PRN (14:00)
[2019-12-21 19:01] VITALS: BP 129/76
[2019-12-21 20:03] VITALS: BP 141/60
[2019-12-21] MEDS: SERTRALINE 100MG TABLET PO SCH (20:06)
[2019-12-21] MEDS: METOPROLOL TARTRATE 25 MG TAB PO SCH (20:06)
[2019-12-21] MEDS: DAKIN'S SOLUTION 1/4 STRENGTH 1,000 ML IRRIG SOLN EXT SCH (21:55)
[2019-12-21] MEDS: CEFTRIAXONE PMX 1GM/50ML 50 ML IV SCH (23:13)
[2019-12-22 01:33] VITALS: BP 140/72
[2019-12-22 05:03] LABS: BASOPHILS # (AUTO) 0.05 x10^3/uL (0-0.1); BASOPHILS % (AUTO) 1 % (0-1); EOSINOPHILS # (AUTO) 0.31 x10^3/uL (0-0.4); EOSINOPHILS % (AUTO) 4 % (1-7); LYMPHOCYTES # (AUTO) 1.82 x10^3/uL (1-3.4); LYMPHOCYTES % (AUTO) 22 % (22-44); MD NO; MEAN CORPUSCULAR HEMOGLOBIN 26.9 pg (27.0-34.8); MEAN CORPUSCULAR HGB CONC 31.8 g/dL (32.4-35.8); MEAN PLATELET VOLUME 6.8 fL (7.4-10.4); MONOCYTES % (AUTO) 9 % (2-9); NEUTROPHILS # (AUTO) 5.39 x10^3/uL (1.8-6.8); NEUTROPHILS % (AUTO) 65 % (42-75); PLATELET COUNT 439 x10^3/uL (130-400); RED BLOOD COUNT 3.46 x10^6/uL (3.82-5.3); RED CELL DISTRIBUTION WIDTH 20.5 % (9.6-15.2)
[2019-12-22 05:14] LABS: ANION GAP 6 mmol/L (5-15); CALCIUM 8.9 mg/dL (8.5-10.1); CHLORIDE 100 mmol/L (98-107); CREATININE 0.59 mg/dL (0.55-1.02)
[2019-12-22] MEDS: ASPIRIN 81 MG TABLET EC PO SCH (05:15)
[2019-12-22 06:28] VITALS: BP 151/75
[2019-12-22] MEDS: SODIUM CHLORIDE FLUSH 10ML SYR IVF SCH ×2 (08:11→20:36)
[2019-12-22] MEDS: APIXABAN 5 MG TABLET PO SCH ×2 (08:11→20:35)
[2019-12-22] MEDS: OMEPRAZOLE 20 MG CAPSULE.DR PO SCH ×2 (08:11→15:55)
[2019-12-22] MEDS: GABAPENTIN 300 MG CAPSULE PO SCH ×3 (08:11→20:35)
[2019-12-22] MEDS: DOXYCYCLINE 100MG TABLET PO SCH ×2 (08:11→20:35)
[2019-12-22] MEDS: HYDROcodone/APAP 5/325 TABLET PO PRN (08:11)
[2019-12-22] MEDS ORDERED: REGADENOSON 0.4 MG/5 ML SYRINGE ONE (08:13)
[2019-12-22 08:58] LABS: TROPONIN I < 0.015 ng/mL (0.000-0.045)
[2019-12-22] MEDS ORDERED: POTASSIUM CHLORIDE 40 MEQ in SODIUM CHLORIDE 0.9% 500 ML IV ONE (09:30)
[2019-12-22] MEDS: DAKIN'S SOLUTION 1/4 STRENGTH 1,000 ML IRRIG SOLN EXT SCH ×2 (09:33→20:36)
[2019-12-22] MEDS ORDERED: POTASSIUM CHLORIDE 20 MEQ TAB.ER.PRT PO ONE (12:30)
[2019-12-22] MEDS: FUROSEMIDE 40 MG TABLET PO SCH (13:11)
[2019-12-22] MEDS: AMLODIPINE 10 MG TAB PO SCH (13:11)
[2019-12-22 15:25] VITALS: BP 143/77
[2019-12-22 18:43] VITALS: BP 157/80
[2019-12-22 20:34] VITALS: BP 103/66
[2019-12-22] MEDS: SERTRALINE 100MG TABLET PO SCH (20:35)
[2019-12-22] MEDS: METOPROLOL TARTRATE 25 MG TAB PO SCH (20:35)
[2019-12-22] MEDS: CEFTRIAXONE PMX 1GM/50ML 50 ML IV SCH (23:43)
[2019-12-23 01:37] VITALS: BP 136/76
[2019-12-23] MEDS: ASPIRIN 81 MG TABLET EC PO SCH (05:16)
[2019-12-23 06:14] LABS: BASOPHILS # (AUTO) 0.04 x10^3/uL (0-0.1); BASOPHILS % (AUTO) 1 % (0-1); EOSINOPHILS # (AUTO) 0.32 x10^3/uL (0-0.4); EOSINOPHILS % (AUTO) 4 % (1-7); LYMPHOCYTES # (AUTO) 1.67 x10^3/uL (1-3.4); LYMPHOCYTES % (AUTO) 22 % (22-44); MD NO; MEAN CORPUSCULAR HGB CONC 32.1 g/dL (32.4-35.8); MONOCYTES # (AUTO) 0.76 x10^3/uL (0.2-0.8); MONOCYTES % (AUTO) 10 % (2-9); NEUTROPHILS # (AUTO) 4.93 x10^3/uL (1.8-6.8); NEUTROPHILS % (AUTO) 64 % (42-75); PLATELET COUNT 446 x10^3/uL (130-400); RED BLOOD COUNT 3.54 x10^6/uL (3.82-5.3); RED CELL DISTRIBUTION WIDTH 20.6 % (9.6-15.2)
[2019-12-23 06:18] LABS: ANION GAP 6 mmol/L (5-15); CALCIUM 8.7 mg/dL (8.5-10.1); CHLORIDE 101 mmol/L (98-107)
[2019-12-23 06:20] LABS: CREATININE 0.63 mg/dL (0.55-1.02)
[2019-12-23 06:49] VITALS: BP 129/71
[2019-12-23] MEDS: AMLODIPINE 10 MG TAB PO SCH (08:58)
[2019-12-23] MEDS: SODIUM CHLORIDE FLUSH 10ML SYR IVF SCH ×2 (08:58→20:14)
[2019-12-23] MEDS: APIXABAN 5 MG TABLET PO SCH ×2 (08:58→20:13)
[2019-12-23] MEDS: DOXYCYCLINE 100MG TABLET PO SCH ×2 (08:58→20:13)
[2019-12-23] MEDS: GABAPENTIN 300 MG CAPSULE PO SCH ×3 (08:58→20:14)
[2019-12-23] MEDS: FUROSEMIDE 40 MG TABLET PO SCH (08:58)
[2019-12-23] MEDS: OMEPRAZOLE 20 MG CAPSULE.DR PO SCH ×2 (08:58→17:21)
[2019-12-23] MEDS: DAKIN'S SOLUTION 1/4 STRENGTH 1,000 ML IRRIG SOLN EXT SCH ×2 (09:00→21:01)
[2019-12-23] MEDS: HYDROcodone/APAP 5/325 TABLET PO PRN ×2 (10:03→20:13)
[2019-12-23 12:05] VITALS: BP 117/68
[2019-12-23 19:31] VITALS: BP 142/75
[2019-12-23 20:12] VITALS: BP 143/75
[2019-12-23] MEDS: SERTRALINE 100MG TABLET PO SCH (20:13)
[2019-12-23] MEDS: METOPROLOL TARTRATE 25 MG TAB PO SCH (20:13)
[2019-12-23] MEDS: CEFTRIAXONE PMX 1GM/50ML 50 ML IV SCH (22:50)
[2019-12-24 01:19] VITALS: BP 129/69
[2019-12-24] MEDS: ASPIRIN 81 MG TABLET EC PO SCH (05:18)
[2019-12-24 06:14] LABS: BASOPHILS # (AUTO) 0.04 x10^3/uL (0-0.1); BASOPHILS % (AUTO) 1 % (0-1); EOSINOPHILS # (AUTO) 0.41 x10^3/uL (0-0.4); EOSINOPHILS % (AUTO) 6 % (1-7); LYMPHOCYTES # (AUTO) 1.53 x10^3/uL (1-3.4); LYMPHOCYTES % (AUTO) 22 % (22-44); MD NO; MEAN CORPUSCULAR HGB CONC 31.6 g/dL (32.4-35.8); MEAN PLATELET VOLUME 7.2 fL (7.4-10.4); MONOCYTES # (AUTO) 0.68 x10^3/uL (0.2-0.8); MONOCYTES % (AUTO) 10 % (2-9); NEUTROPHILS # (AUTO) 4.45 x10^3/uL (1.8-6.8); NEUTROPHILS % (AUTO) 63 % (42-75); PLATELET COUNT 430 x10^3/uL (130-400); RED BLOOD COUNT 3.64 x10^6/uL (3.82-5.3); RED CELL DISTRIBUTION WIDTH 21.3 % (9.6-15.2)
[2019-12-24 06:20] LABS: ANION GAP 5 mmol/L (5-15); CALCIUM 9.3 mg/dL (8.5-10.1); CHLORIDE 99 mmol/L (98-107); CREATININE 0.73 mg/dL (0.55-1.02)
[2019-12-24 06:35] VITALS: BP 128/75
[2019-12-24] MEDS: APIXABAN 5 MG TABLET PO SCH ×2 (07:12→21:26)
[2019-12-24] MEDS: AMLODIPINE 10 MG TAB PO SCH (08:13)
[2019-12-24] MEDS: OMEPRAZOLE 20 MG CAPSULE.DR PO SCH ×2 (08:13→18:05)
[2019-12-24] MEDS: SODIUM CHLORIDE FLUSH 10ML SYR IVF SCH ×2 (08:13→21:26)
[2019-12-24] MEDS: FUROSEMIDE 40 MG TABLET PO SCH (08:13)
[2019-12-24] MEDS: DOXYCYCLINE 100MG TABLET PO SCH ×2 (08:13→21:27)
[2019-12-24] MEDS: GABAPENTIN 300 MG CAPSULE PO SCH ×3 (08:13→21:27)
[2019-12-24] MEDS: DAKIN'S SOLUTION 1/4 STRENGTH 1,000 ML IRRIG SOLN EXT SCH ×2 (08:14→21:00)
[2019-12-24] MEDS ORDERED: POTASSIUM CHLORIDE 20 MEQ TAB.ER.PRT PO ONE (12:00)
[2019-12-24] MEDS: HYDROcodone/APAP 5/325 TABLET PO PRN (12:47)
[2019-12-24 12:50] VITALS: BP 124/67
[2019-12-24] MEDS ORDERED: CHLORHEXIDINE 15 ML UDC ONE (15:12)
[2019-12-24] MEDS ORDERED: PROTAMINE SULFATE 10 MG/ML, 5ML ONE (15:14)
[2019-12-24] MEDS ORDERED: HEPARIN 1,000 UNITS/ML, 10ML ONE (15:14)
[2019-12-24] MEDS ORDERED: HEPARIN 1,000 UNITS/ML, 30ML ONE (15:14)
[2019-12-24] MEDS ORDERED: CHLORHEXIDINE 15 ML UDC MM ONE (15:30)
[2019-12-24] MEDS ORDERED: CEFAZOLIN 1,000 MG ONE (15:42)
[2019-12-24] MEDS ORDERED: SUCCINYLCHOLINE 20 MG/ML, 10ML ONE (15:42)
[2019-12-24] MEDS ORDERED: PROPOFOL 10 MG/ML, 20ML ONE (15:42)
[2019-12-24] MEDS ORDERED: FENTANYL PF 100 MCG/2ML ONE ×2 (16:29→16:58)
[2019-12-24] MEDS ORDERED: HYDROmorphone 1 MG/ML, 1ML INJ IVPush PRN (16:30)
[2019-12-24] MEDS ORDERED: OXYcodone 5 MG/5 ML ORAL.SOL UDC PO PRN (16:30)
[2019-12-24] MEDS ORDERED: hydrALAzine 20 MG/ML, 1ML IV PRN (16:30)
[2019-12-24] MEDS ORDERED: ACETAMINOPHEN 325 MG TABLET PO PRN (16:30)
[2019-12-24] MEDS ORDERED: LABETALOL 5MG/ML, 20ML IV PRN (16:30)
[2019-12-24] MEDS ORDERED: ONDANSETRON 2MG/ML, 2ML IVPush PRN (16:30)
[2019-12-24] MEDS: FENTANYL PF 100 MCG/2ML IV PRN ×2 (17:00→17:19)
[2019-12-24] MEDS ORDERED: OXYcodone 5 MG/5 ML ORAL.SOL UDC ONE (17:00)
[2019-12-24 20:03] VITALS: BP 134/62
[2019-12-24 21:25] VITALS: BP 125/72
[2019-12-24] MEDS: SERTRALINE 100MG TABLET PO SCH (21:26)
[2019-12-24] MEDS: METOPROLOL TARTRATE 25 MG TAB PO SCH (21:27)
[2019-12-24] MEDS: CEFTRIAXONE PMX 1GM/50ML 50 ML IV SCH (23:09)
[2019-12-25 00:51] VITALS: BP 127/72
[2019-12-25] MEDS: HYDROcodone/APAP 5/325 TABLET PO PRN ×2 (00:56→05:18)
[2019-12-25] MEDS: ASPIRIN 81 MG TABLET EC PO SCH (05:17)
[2019-12-25 06:30] LABS: BASOPHILS # (AUTO) 0.04 x10^3/uL (0-0.1); BASOPHILS % (AUTO) 0 % (0-1); EOSINOPHILS # (AUTO) 0.35 x10^3/uL (0-0.4); EOSINOPHILS % (AUTO) 4 % (1-7); LYMPHOCYTES # (AUTO) 1.97 x10^3/uL (1-3.4); LYMPHOCYTES % (AUTO) 21 % (22-44); MD NO; MEAN CORPUSCULAR HEMOGLOBIN 26.9 pg (27.0-34.8); MEAN CORPUSCULAR HGB CONC 31.9 g/dL (32.4-35.8); MEAN PLATELET VOLUME 7.7 fL (7.4-10.4); MONOCYTES # (AUTO) 0.79 x10^3/uL (0.2-0.8); MONOCYTES % (AUTO) 9 % (2-9); NEUTROPHILS # (AUTO) 6.14 x10^3/uL (1.8-6.8); NEUTROPHILS % (AUTO) 66 % (42-75); PLATELET COUNT 439 x10^3/uL (130-400); RED BLOOD COUNT 3.75 x10^6/uL (3.82-5.3); RED CELL DISTRIBUTION WIDTH 20.2 % (9.6-15.2)
[2019-12-25 06:56] VITALS: BP 118/62
[2019-12-25 07:43] LABS: ALANINE AMINOTRANSFERASE 13 U/L (12-78); ALBUMIN 2.3 g/dL (3.4-5.0); CREATININE 0.73 mg/dL (0.55-1.02)
[2019-12-25 08:22] LABS: ALKALINE PHOSPHATASE 61 U/L (45-117); ANION GAP 10 mmol/L (5-15); BILIRUBIN,TOTAL 0.4 mg/dL (0.2-1.0); CHLORIDE 96 mmol/L (98-107); TOTAL PROTEIN 6.6 g/dL (6.4-8.2)
[2019-12-25] MEDS: DAKIN'S SOLUTION 1/4 STRENGTH 1,000 ML IRRIG SOLN EXT SCH ×2 (08:28→20:15)
[2019-12-25] MEDS ORDERED: FENTANYL PF 100 MCG/2ML IVPush PRN (08:30)
[2019-12-25 08:43] VITALS: BP 111/69
[2019-12-25] MEDS: DOXYCYCLINE 100MG TABLET PO SCH ×2 (08:43→20:14)
[2019-12-25] MEDS: GABAPENTIN 300 MG CAPSULE PO SCH ×3 (08:43→20:15)
[2019-12-25] MEDS: FUROSEMIDE 40 MG TABLET PO SCH (08:44)
[2019-12-25] MEDS: APIXABAN 5 MG TABLET PO SCH ×2 (08:44→20:15)
[2019-12-25] MEDS: OMEPRAZOLE 20 MG CAPSULE.DR PO SCH ×2 (08:44→16:26)
[2019-12-25] MEDS: AMLODIPINE 10 MG TAB PO SCH (08:44)
[2019-12-25] MEDS: SODIUM CHLORIDE FLUSH 10ML SYR IVF SCH ×2 (08:44→20:15)
[2019-12-25 08:54] LABS: CALCIUM 8.8 mg/dL (8.5-10.1)
[2019-12-25 12:20] VITALS: BP 130/44
[2019-12-25 19:18] VITALS: BP 144/63
[2019-12-25 20:13] VITALS: BP 125/56
[2019-12-25] MEDS: SERTRALINE 100MG TABLET PO SCH (20:14)
[2019-12-25] MEDS: METOPROLOL TARTRATE 25 MG TAB PO SCH (20:14)
[2019-12-25] MEDS: CEFTRIAXONE PMX 1GM/50ML 50 ML IV SCH (22:47)
[2019-12-26 01:00] VITALS: BP 141/76
[2019-12-26] MEDS: ASPIRIN 81 MG TABLET EC PO SCH (05:13)
[2019-12-26 06:27] LABS: ANION GAP 9 mmol/L (5-15); CHLORIDE 97 mmol/L (98-107); CREATININE 0.65 mg/dL (0.55-1.02)
[2019-12-26 08:21] VITALS: BP 146/68
[2019-12-26] MEDS: FUROSEMIDE 40 MG TABLET PO SCH (08:39)
[2019-12-26] MEDS: GABAPENTIN 300 MG CAPSULE PO SCH ×3 (08:40→21:44)
[2019-12-26] MEDS: AMLODIPINE 10 MG TAB PO SCH (08:40)
[2019-12-26] MEDS: SODIUM CHLORIDE FLUSH 10ML SYR IVF SCH ×2 (08:40→21:45)
[2019-12-26] MEDS: APIXABAN 5 MG TABLET PO SCH ×2 (08:40→21:44)
[2019-12-26] MEDS: DOXYCYCLINE 100MG TABLET PO SCH ×2 (08:40→21:44)
[2019-12-26] MEDS: OMEPRAZOLE 20 MG CAPSULE.DR PO SCH ×2 (08:40→16:43)
[2019-12-26] MEDS: POTASSIUM CHLORIDE 20 MEQ TAB.ER.PRT PO SCH ×2 (08:40→16:43)
[2019-12-26] MEDS: DAKIN'S SOLUTION 1/4 STRENGTH 1,000 ML IRRIG SOLN EXT SCH ×2 (08:41→21:45)
[2019-12-26] MEDS: HYDROcodone/APAP 5/325 TABLET PO PRN (13:24)
[2019-12-26 14:38] VITALS: BP 95/53
[2019-12-26 18:19] VITALS: BP 98/53
[2019-12-26] MEDS: SERTRALINE 100MG TABLET PO SCH (21:44)
[2019-12-26] MEDS: METOPROLOL TARTRATE 25 MG TAB PO SCH (21:45)
[2019-12-26] MEDS: CEFTRIAXONE PMX 1GM/50ML 50 ML IV SCH (23:06)
[2019-12-26 23:16] VITALS: BP 154/74
[2019-12-26] MEDS: ACETAMINOPHEN 325 MG TABLET PO PRN (23:19)
[2019-12-27 03:40] VITALS: BP 132/73
[2019-12-27] MEDS: ASPIRIN 81 MG TABLET EC PO SCH (06:03)
[2019-12-27] MEDS: DAKIN'S SOLUTION 1/4 STRENGTH 1,000 ML IRRIG SOLN EXT SCH ×2 (08:49→21:00)
[2019-12-27 09:08] VITALS: BP 149/75
[2019-12-27] MEDS: AMLODIPINE 10 MG TAB PO SCH (09:20)
[2019-12-27] MEDS: FUROSEMIDE 40 MG TABLET PO SCH (09:20)
[2019-12-27] MEDS: DOXYCYCLINE 100MG TABLET PO SCH ×2 (09:20→21:32)
[2019-12-27] MEDS: GABAPENTIN 300 MG CAPSULE PO SCH ×3 (09:21→21:32)
[2019-12-27] MEDS: OMEPRAZOLE 20 MG CAPSULE.DR PO SCH ×2 (09:21→16:40)
[2019-12-27] MEDS: APIXABAN 5 MG TABLET PO SCH ×2 (09:21→21:32)
[2019-12-27] MEDS: SODIUM CHLORIDE FLUSH 10ML SYR IVF SCH ×2 (09:21→21:33)
[2019-12-27] MEDS: POTASSIUM CHLORIDE 20 MEQ TAB.ER.PRT PO SCH ×2 (09:21→16:40)
[2019-12-27 12:49] VITALS: BP 142/73
[2019-12-27 21:31] VITALS: BP 131/72
[2019-12-27] MEDS: SERTRALINE 100MG TABLET PO SCH (21:32)
[2019-12-27] MEDS: METOPROLOL TARTRATE 25 MG TAB PO SCH (21:32)
[2019-12-27] MEDS: CEFTRIAXONE PMX 1GM/50ML 50 ML IV SCH (23:18)
[2019-12-28 01:02] VITALS: BP 119/65
[2019-12-28] MEDS: ASPIRIN 81 MG TABLET EC PO SCH (05:03)
[2019-12-28 05:57] LABS: BASOPHILS # (AUTO) 0.05 x10^3/uL (0-0.1); BASOPHILS % (AUTO) 1 % (0-1); EOSINOPHILS # (AUTO) 0.37 x10^3/uL (0-0.4); EOSINOPHILS % (AUTO) 4 % (1-7); LYMPHOCYTES # (AUTO) 1.83 x10^3/uL (1-3.4); LYMPHOCYTES % (AUTO) 21 % (22-44); MD NO; MEAN CORPUSCULAR HEMOGLOBIN 26.7 pg (27.0-34.8); MEAN CORPUSCULAR HGB CONC 31.7 g/dL (32.4-35.8); MEAN PLATELET VOLUME 7.7 fL (7.4-10.4); MONOCYTES # (AUTO) 0.78 x10^3/uL (0.2-0.8); MONOCYTES % (AUTO) 9 % (2-9); NEUTROPHILS # (AUTO) 5.73 x10^3/uL (1.8-6.8); NEUTROPHILS % (AUTO) 65 % (42-75); PLATELET COUNT 427 x10^3/uL (130-400); RED BLOOD COUNT 3.58 x10^6/uL (3.82-5.3); RED CELL DISTRIBUTION WIDTH 20.4 % (9.6-15.2)
[2019-12-28 06:05] LABS: ALANINE AMINOTRANSFERASE 9 U/L (12-78); ALBUMIN 2.1 g/dL (3.4-5.0); ANION GAP 6 mmol/L (5-15); CALCIUM 9.5 mg/dL (8.5-10.1); CHLORIDE 100 mmol/L (98-107); CREATININE 0.68 mg/dL (0.55-1.02)
[2019-12-28 06:12] LABS: ALKALINE PHOSPHATASE 66 U/L (45-117); BILIRUBIN,TOTAL 0.3 mg/dL (0.2-1.0); TOTAL PROTEIN 6.1 g/dL (6.4-8.2)
[2019-12-28 06:23] LABS: HCT (SEDRATE) 30.2 % (34.6-47.8)
[2019-12-28 07:22] VITALS: BP 147/72
[2019-12-28] MEDS: SODIUM CHLORIDE FLUSH 10ML SYR IVF SCH (09:00)
[2019-12-28] MEDS: DAKIN'S SOLUTION 1/4 STRENGTH 1,000 ML IRRIG SOLN EXT SCH (09:00)
[2019-12-28] MEDS: DOXYCYCLINE 100MG TABLET PO SCH (09:04)
[2019-12-28] MEDS: POTASSIUM CHLORIDE 20 MEQ TAB.ER.PRT PO SCH ×2 (09:05→17:31)
[2019-12-28] MEDS: OMEPRAZOLE 20 MG CAPSULE.DR PO SCH ×2 (09:05→17:31)
[2019-12-28] MEDS: AMLODIPINE 10 MG TAB PO SCH (09:05)
[2019-12-28] MEDS: GABAPENTIN 300 MG CAPSULE PO SCH ×2 (09:05→17:31)
[2019-12-28] MEDS: FUROSEMIDE 40 MG TABLET PO SCH (09:05)
[2019-12-28] MEDS: APIXABAN 5 MG TABLET PO SCH (09:05)
[2019-12-28] MEDS ORDERED: SUCR1TAB33 PO (11:15)
[2019-12-28] MEDS ORDERED: DOXY100T PO (11:15)
[2019-12-28] MEDS ORDERED: HYDR-3237 PO (11:15)
[2019-12-28] MEDS ORDERED: CEFD300C37 PO (11:15)
[2019-12-28] MEDS ORDERED: LIDO700A20 TD (11:15)
[2019-12-28 14:00] VITALS: BP 130/44
[2020-02-02] MEDS ORDERED: OMEP20TA62 PO (21:12)
[2020-02-09] MEDS ORDERED: OXYcodone/APAP 5/325MG PO (13:08)
== END 2019-12-28 18:15 | DRG 253 ==
LOC: ORIP 07:33 → EDSTATUS 09:30 → 4NE 16:35 → 4WST 18:45 → 5SO 12-27 15:22
PROVIDERS: ADMIT Surgery Vascular Surgery; ATTEND Internal Medicine
PROC: 041K0JJ Bypass Right Femoral Artery to Left Femoral Artery with Synthetic Substitute, Open Approach (ICD-10-PCS; 2019-12-14)
PROC: 04CK0ZZ Extirpation of Matter from Right Femoral Artery, Open Approach (ICD-10-PCS; 2019-12-14)
PROC: B41C1ZZ Fluoroscopy of Pelvic Arteries using Low Osmolar Contrast (ICD-10-PCS; 2019-12-14)
PROC: 0JBP0ZZ Excision of Left Lower Leg Subcutaneous Tissue and Fascia, Open Approach (ICD-10-PCS; principal; 2019-12-14 09:30)
PROC: 0JBP0ZZ Excision of Left Lower Leg Subcutaneous Tissue and Fascia, Open Approach (ICD-10-PCS; 2019-12-24)
DX: I73.9 Peripheral vascular disease, unspecified (principal); I82.402 Acute embolism and thrombosis of unspecified deep veins of left lower extremity; L97.229 Non-pressure chronic ulcer of left calf with unspecified severity; I47.2 Ventricular tachycardia; I74.5 Embolism and thrombosis of iliac artery; K52.1 Toxic gastroenteritis and colitis; E87.6 Hypokalemia; I25.10 Atherosclerotic heart disease of native coronary artery without angina pectoris; I10 Essential (primary) hypertension; G62.9 Polyneuropathy, unspecified; E87.5 Hyperkalemia; Z20.828 Contact with and (suspected) exposure to other viral communicable diseases; F32.9 Major depressive disorder, single episode, unspecified; I27.20 Pulmonary hypertension, unspecified; T36.95XA Adverse effect of unspecified systemic antibiotic, initial encounter; B95.8 Unspecified staphylococcus as the cause of diseases classified elsewhere; Z79.01 Long term (current) use of anticoagulants; Z82.49 Family history of ischemic heart disease and other diseases of the circulatory system; Z86.718 Personal history of other venous thrombosis and embolism; Z88.0 Allergy status to penicillin; Z90.710 Acquired absence of both cervix and uterus; Z95.1 Presence of aortocoronary bypass graft; Z90.49 Acquired absence of other specified parts of digestive tract; Z90.722 Acquired absence of ovaries, bilateral; Z88.1 Allergy status to other antibiotic agents; Z79.899 Other long term (current) drug therapy; Z79.82 Long term (current) use of aspirin; Z79.891 Long term (current) use of opiate analgesic; Z88.5 Allergy status to narcotic agent
CPT/HCPCS: 36415; 74018; 76000; 78452; 80048; 80053; 80061; 83735; 84439; 84443; 84484; 85025; 85651; 86140; 86850; 86900; 87070; 87075; 87077; 87186; 87205; 87635; 88305; 93005; 93017; 93306; C1729; C1768; G0378; J0690; J0696; J1100; J1170; J1644; J1650; J1885; J2250; J2405; J2704; J2710; J2720; J2785; J3010; J3480; A9502; J0330; J2370; J7040; J7120

== ENCOUNTER 2020-11-03 23:05 | Emergency (ER) | payer MEDICARE ==
[~2020-11-03] VITALS: Ht 152.4 cm; Wt 77.0 kg
[~2020-11-03 23:05] MED LIST changes: +AMLO-211 PO; -AMLO10TA8 PO; -BACITRACIN 50,000 UNIT ONE; +CEFD300C37 PO; -CLIN150C14 PO; +CLIN150C15 PO; -DEXAMETHASONE 4 MG/ML, 1ML ONE; +DOXY100T PO; -FENTANYL PF 100 MCG/2ML ONE; -HEPARIN 1,000 UNITS/ML, 30ML ONE; -MIDAZOLAM 1 MG/ML, 2ML ONE; +OMEP20TA62 PO; -ONDANSETRON 2MG/ML, 2ML ONE; +OXYcodone/APAP 5/325MG PO; -PROPOFOL 10 MG/ML, 20ML ONE; -PROTAMINE SULFATE 10 MG/ML, 5ML ONE; -ROCURONIUM 10MG/ML,5ML ONE; +SUCR1TAB33 PO; +SULF-23 PO; -SULF1TAB24 PO
[2020-11-04 00:23] LABS: ANION GAP 6 mmol/L (5-15); CALCIUM 9.2 mg/dL (8.5-10.1); CHLORIDE 105 mmol/L (98-107)
[2020-11-04 00:24] LABS: CREATININE 1.14 mg/dL (0.55-1.02)
[2020-11-04 00:25] LABS: BASOPHILS % (AUTO) 1 % (0-1); EOSINOPHILS % (AUTO) 5 % (1-7); LYMPHOCYTES % (AUTO) 27 % (22-44); MEAN CORPUSCULAR HEMOGLOBIN 29.9 pg (27.0-34.8); MEAN CORPUSCULAR HGB CONC 32.9 g/dL (32.4-35.8); MEAN PLATELET VOLUME 8.3 fL (7.4-10.4); MONOCYTES % (AUTO) 7 % (2-9); NEUTROPHILS % (AUTO) 61 % (42-75); PLATELET COUNT 270 x10^3/uL (130-400); RED BLOOD COUNT 4.64 x10^6/uL (3.82-5.3); RED CELL DISTRIBUTION WIDTH 16.9 % (9.6-15.2)
[2020-11-04 00:30] LABS: MD NO
--- NOTE | 2020-11-04 00:47 | NUR ---
pt states she felt both her arms burning and her left leg go numb, she said the burning sensation woke her up from her sleep
--- NOTE | 2020-11-04 01:30 | NUR ---
pt laying in bed, a/ox4, all needs in reach, call light in reach, NAD
[2020-11-04 01:36] VITALS: BP 164/63
== END 2020-11-04 02:23 | disposition home or self-care (01) ==
LOC: ED 23:35
DX: R20.2 Paresthesia of skin (principal); R94.31 Abnormal electrocardiogram [ECG] [EKG]; I10 Essential (primary) hypertension; M19.90 Unspecified osteoarthritis, unspecified site; K21.9 Gastro-esophageal reflux disease without esophagitis; I25.10 Atherosclerotic heart disease of native coronary artery without angina pectoris; E78.00 Pure hypercholesterolemia, unspecified; Z88.0 Allergy status to penicillin; Z88.6 Allergy status to analgesic agent
CPT/HCPCS: 36415; 80048; 84484; 85025; 93005; 99285

== ENCOUNTER → 2020-11-24 | Outpatient (CLI) | payer MEDICARE | END | disposition home or self-care (01) | LOC: CVU 13:30 | PROVIDERS: ATTEND Surgery Vascular Surgery | DX: I70.213 Atherosclerosis of native arteries of extremities with intermittent claudication, bilateral legs (principal); I70.8 Atherosclerosis of other arteries; E78.5 Hyperlipidemia, unspecified; I10 Essential (primary) hypertension; I48.91 Unspecified atrial fibrillation; I77.1 Stricture of artery; Z95.1 Presence of aortocoronary bypass graft | CPT/HCPCS: 93922; 93925 ==